=== PATIENT | male | born 1950 | race Caucasian/White ===

== ENCOUNTER 2023-12-05 12:17 | Outpatient (CLI) | payer OTHER, SELFPAY ==
--- NOTE | 2023-12-05 12:32 | USCV_ITS ---
Yesy Raul Age: 73 Gender: M : 1950 Exam Date: 12/05/2023 12:51 Ordering Phys: Karina Calhoun APRN Technologist: [place] [facility] [place]: PVD RIGHT LEFT Brachial 141.00 mmHg Brachial 144.00 mmHg Pressure (mmHg) Waveform Pressure (mmHg) Waveform 156.00 IRRIGATION ENGINEER 158.00 148.00 DPA 150.00 1.08 Ankle/Brachial Index 1.10 103.00 Pre-Exercise Toe Pressure 97.00 0.72 Pre-Exercise Toe/Brachial Index 0.67 FINDINGS Resting PILY 1.08 on the right and 1.1 on the left Resting TBI 0.72 on the right and 0.67 on the left CONCLUSIONS Normal resting PILY and TBI on the right side suggesting no significant arterial obstruction Normal resting PILY with a slightly diminished resting TBI on the left side may suggest some mild peripheral artery disease Dr Christiano Diaz MD [facility] (Electronically Signed) Final Date: 05 December 2023 16:55 S
== END 2023-12-05 12:18 | disposition home or self-care (01) ==
PROVIDERS: Visit Provider Nurse Practitioner Family
DX: I73.9 Peripheral vascular disease, unspecified (principal)
CPT/HCPCS: 93922